=== PATIENT | male | born 1985 | race Two or more races ===

== ENCOUNTER 2020-01-29 15:40 | Emergency (ER) | payer OTHER ==
[2020-01-29 15:45] VITALS: BP 123/76; PULSE 74; RESP 20; TEMP 98.9
[2020-01-29] MEDS ORDERED: CLINDAMYCIN 150 MG CAP PO STA (15:55)
--- NOTE | 2020-01-29 15:56 | ED ---
ENT HPI - General Chief complaint: Dental/Oral Stated complaint: Mouth pain Time Seen by Provider: 01/29/20 15:46 Source: patient Mode of arrival: ambulatory Limitations: no limitations - History of Present Illness Initial comments: Patient is a 34-year-old male presenting to emergency Department chief complaint dental pain. Patient reports symptoms of an ongoing for the past few days. Patient reports she has not seen a dentist in quite a long time. States most of the pain is located in the left lower jaw with mild swelling region. States the swelling has improved today. Denies any night sweats or chills. Stays able to fully open his mouth without any difficulties. Denies taking medication to alleviate his symptoms. He is not diabetic. - Related Data Previous Rx's Medication Instructions Recorded ARIPiprazole [Abilify] 5 mg PO DAILY 30 Days tab 12/07/19 Acetaminophen Tab [Tylenol] 650 mg PO Q4HR PRN tab 12/07/19 Nicotine 14Mg/24Hr Patch [Habitrol] 1 patch TRANSDERM DAILY 14 Days 12/07/19 patch Clindamycin [Cleocin] 150 mg PO Q6H #40 capsule 01/29/20 Allergies Allergy/AdvReac Type Severity Reaction Status Date / Time Penicillins Allergy Nausea & Verified 01/29/20 15:44 Vomiting Review of Systems ROS Statement: Those systems with pertinent positive or pertinent negative responses have been documented in the HPI. ROS Other: All systems not noted in ROS Statement are negative. Past Medical History Additional Past Medical History / Comment(s): ODD, borderline personality History of Any Multi-Drug Resistant Organisms: None Reported Past Surgical History: No Surgical Hx Reported Past Psychological History: ADD/ADHD Smoking Status: Current every day smoker Past Alcohol Use History: Occasional Past Drug Use History: Cocaine, Marijuana, Methamphetamine - Past Family History Father Family Medical History: No Reported History General Exam Limitations: no limitations General appearance: alert, in no apparent distress Head exam: Present: atraumatic, normocephalic, normal inspection Eye exam: Present: normal appearance, PERRL, EOMI Pupils: Present: normal accommodation ENT exam: Present: normal exam, TM's normal bilaterally, normal external ear exam, other (No signs of Dusty's angina.). Absent: normal oropharynx (Poor dentition. Significant tooth decay and tooth #19. Some erythema along the gumline. No periapical abscess.) Neck exam: Present: normal inspection, full ROM. Absent: tenderness Respiratory exam: Present: normal lung sounds bilaterally. Absent: respiratory distress, wheezes Cardiovascular Exam: Present: regular rate, normal rhythm, normal heart sounds Extremities exam: Present: normal inspection, full ROM Back exam: Present: normal inspection, full ROM Neurological exam: Present: alert, oriented X3 Psychiatric exam: Present: normal affect, normal mood Skin exam: Present: warm, dry, intact, normal color Course Vital Signs 01/29/20 15:42 Temperature 98.9 F Pulse Rate 74 Respiratory 20 Rate Blood Pressure 123/76 O2 Sat by Pulse 97 Oximetry Medical Decision Making - Medical Decision Making Patient is a 34-year-old male presenting to emergency Department chief complaint abdominal pain. Exam patient has significant decay in tooth #19 with some inflammation around the gumline. No signs of periapical abscess. He does have history of poor dentition. Has not seen a dentist in quite a long time. He gave the patient a prescription of clindamycin and started on clindamycin in the emergency department. Patient also given information regarding frequent dental clinics. Return parameters were thoroughly discussed the patient was understanding and agreeable. Case discussed physician. Disposition Clinical Impression: Dental infection, Toothache Disposition: HOME SELF-CARE Condition: Poor Instructions (If sedation given, give patient instructions): Toothache (ED) Additional Instructions: Take prescribed medication as directed. Alternate between Tylenol and Motrin for pain control. Return to emergency department if symptoms worsen. Prescriptions: Clindamycin [Cleocin] 150 mg PO Q6H #40 capsule Is patient prescribed a controlled substance at d/c from ED?: No Referrals: None,Stated [Primary Care Provider] - 1-2 days Time of Disposition: 15:56
== END 2020-01-29 16:07 | disposition home or self-care (01) ==
LOC: MERGE 15:40 → EC 15:40
DX: K04.7 Periapical abscess without sinus (principal); K08.89 Other specified disorders of teeth and supporting structures; F17.200 Nicotine dependence, unspecified, uncomplicated; Z88.0 Allergy status to penicillin
CPT/HCPCS: 99282

== ENCOUNTER 2020-02-28 08:34 | Emergency (ER) | payer OTHER ==
[2020-02-28 08:40] VITALS: TEMP 98
--- NOTE | 2020-02-28 09:01 | ED ---
General Adult HPI - General Chief complaint: Chest Pain Stated complaint: dizziness/chest pain Time Seen by Provider: 02/28/20 08:35 Source: patient, RN notes reviewed, old records reviewed Mode of arrival: ambulatory Limitations: no limitations - History of Present Illness Initial comments: This is a 34-year-old male who presents emergency Department complaining of feeling lightheaded while at work. Patient states he did not eat breakfast today. Patient states he was working he felt a little lightheaded and then he had a weird feeling in his chest that lasted about 10 seconds. Patient states it felt like his heart wasn't pumping strong enough. But only lasted for 10 seconds. Patient denies any difficulty breathing shortest breath per patient denies any recent fever chills or cough per patient denies any headache patient denies being lightheaded currently. Patient denies any chest pain currently patient denies any difficulty breathing currently. Patient denies any symptoms at this time. - Related Data Previous Rx's Medication Instructions Recorded ARIPiprazole [Abilify] 5 mg PO DAILY 30 Days tab 12/07/19 Acetaminophen Tab [Tylenol] 650 mg PO Q4HR PRN tab 12/07/19 Nicotine 14Mg/24Hr Patch [Habitrol] 1 patch TRANSDERM DAILY 14 Days 12/07/19 patch Clindamycin [Cleocin] 150 mg PO Q6H #40 capsule 01/29/20 Allergies Allergy/AdvReac Type Severity Reaction Status Date / Time Penicillins Allergy Nausea & Verified 02/28/20 08:36 Vomiting Review of Systems ROS Statement: Those systems with pertinent positive or pertinent negative responses have been documented in the HPI. ROS Other: All systems not noted in ROS Statement are negative. 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 History of Any Multi-Drug Resistant Organisms: None Reported Past Surgical History: No Surgical Hx Reported Additional Past Surgical History / Comment(s): testicular surgery Past Psychological History: ADD/ADHD, Anxiety Smoking Status: Current every day smoker Past Alcohol Use History: Occasional Past Drug Use History: Marijuana - Past Family History Father Family Medical History: No Reported History General Exam - General Exam Comments Initial Comments: GENERAL: Patient is well-developed and well-nourished. Patient is nontoxic and well- hydrated and is in no acute distress. ENT: Neck is soft and supple. No significant lymphadenopathy is noted. Oropharynx is clear. Moist mucous membranes. Neck has full range of motion without eliciting any pain. EYES: The sclera were anicteric and conjunctiva were pink and moist. Extraocular movements were intact and pupils were equal round and reactive to light. Eyelids were unremarkable. PULMONARY: Unlabored respirations. Good breath sounds bilaterally. No audible rales rhonchi or wheezing was noted. CARDIOVASCULAR: There is a regular rate and rhythm without any murmurs gallops or rubs. ABDOMEN: Soft and nontender with normal bowel sounds. No palpable organomegaly was noted. There is no palpable pulsatile mass. SKIN: Skin is clear with no lesions or rashes and otherwise unremarkable. NEUROLOGIC: Patient is alert and oriented x3. Cranial nerves II through XII are grossly intact. Motor and sensory are also intact. Normal speech, volume and content. Symmetrical smile. MUSCULOSKELETAL: Normal extremities with adequate strength and full range of motion. No lower extremity swelling or edema. No calf tenderness. LYMPHATICS: No significant lymphadenopathy is noted PSYCHIATRIC: Normal psychiatric evaluation. Limitations: no limitations Course Vital Signs 02/28/20 02/28/20 02/28/20 08:36 08:53 09:00 Temperature 98 F Pulse Rate 75 68 64 Respiratory 18 9 L 18 Rate Blood Pressure 135/80 126/65 O2 Sat by Pulse 98 98 Oximetry 02/28/20 02/28/20 02/28/20 09:20 09:40 10:00 Temperature Pulse Rate 60 55 L 56 L Respiratory 15 17 18 Rate Blood Pressure 109/69 116/76 116/76 O2 Sat by Pulse 98 99 98 Oximetry 02/28/20 10:30 Temperature Pulse Rate 57 L Respiratory 17 Rate Blood Pressure 118/68 O2 Sat by Pulse 100 Oximetry Medical Decision Making - Medical Decision Making EKG shows normal sinus rhythm at 60 bpm AR interval 238 QRS is under QT interval 376 QTC is 399. Patient's EKG shows no ST segment elevation or depression. Chest x-ray shows no acute abnormality. Back into reevaluate the patient he stated he has been a symptomatically since he arrived. - Lab Data Result diagrams: 02/28/20 08:58 02/28/20 08:58 Lab Results 02/28/20 02/28/20 02/28/20 Range/Units 08:58 08:58 08:58 WBC 10.3 (3.8-10.6) k/uL RBC 5.24 (4.30-5.90) m/uL Hgb 16.1 (13.0-17.5) gm/dL Hct 49.4 (39.0-53.0) % MCV 94.3 (80.0-100.0) fL MCH 30.8 (25.0-35.0) pg MCHC 32.7 (31.0-37.0) g/dL RDW 12.9 (11.5-15.5) % Plt Count 106 L (150-450) k/uL Neutrophils % 73 % Lymphocytes % 19 % Monocytes % 4 % Eosinophils % 2 % Basophils % 1 % Neutrophils # 7.5 (1.3-7.7) k/uL Lymphocytes # 2.0 (1.0-4.8) k/uL Monocytes # 0.4 (0-1.0) k/uL Eosinophils # 0.2 (0-0.7) k/uL Basophils # 0.1 (0-0.2) k/uL Manual Slide Review Performed Large Platelets Present PT 10.3 (9.0-12.0) sec INR 1.0 (<1.2) APTT 25.3 (22.0-30.0) sec Sodium 139 (137-145) mmol/L Potassium 4.3 (3.5-5.1) mmol/L Chloride 106 (98-107) mmol/L Carbon Dioxide 24 (22-30) mmol/L Anion Gap 9 mmol/L BUN 14 (9-20) mg/dL Creatinine 0.94 (0.66-1.25) mg/dL Est GFR (CKD-EPI)AfAm >90 (>60 ml/min/1.73 sqM) Est GFR (CKD-EPI)NonAf >90 (>60 ml/min/1.73 sqM) Glucose 92 (74-99) mg/dL Calcium 9.4 (8.4-10.2) mg/dL Magnesium 1.9 (1.6-2.3) mg/dL Total Bilirubin 0.9 (0.2-1.3) mg/dL AST 30 (17-59) U/L ALT 16 (4-49) U/L Alkaline Phosphatase 51 (38-126) U/L Troponin I (0.000-0.034) ng/mL Total Protein 7.2 (6.3-8.2) g/dL Albumin 4.6 (3.5-5.0) g/dL 02/28/20 Range/Units 08:58 WBC (3.8-10.6) k/uL RBC (4.30-5.90) m/uL Hgb (13.0-17.5) gm/dL Hct (39.0-53.0) % MCV (80.0-100.0) fL MCH (25.0-35.0) pg MCHC (31.0-37.0) g/dL RDW (11.5-15.5) % Plt Count (150-450) k/uL Neutrophils % % Lymphocytes % % Monocytes % % Eosinophils % % Basophils % % Neutrophils # (1.3-7.7) k/uL Lymphocytes # (1.0-4.8) k/uL Monocytes # (0-1.0) k/uL Eosinophils # (0-0.7) k/uL Basophils # (0-0.2) k/uL Manual Slide Review Large Platelets PT (9.0-12.0) sec INR (<1.2) APTT (22.0-30.0) sec Sodium (137-145) mmol/L Potassium (3.5-5.1) mmol/L Chloride (98-107) mmol/L Carbon Dioxide (22-30) mmol/L Anion Gap mmol/L BUN (9-20) mg/dL Creatinine (0.66-1.25) mg/dL Est GFR (CKD-EPI)AfAm (>60 ml/min/1.73 sqM) Est GFR (CKD-EPI)NonAf (>60 ml/min/1.73 sqM) Glucose (74-99) mg/dL Calcium (8.4-10.2) mg/dL Magnesium (1.6-2.3) mg/dL Total Bilirubin (0.2-1.3) mg/dL AST (17-59) U/L ALT (4-49) U/L Alkaline Phosphatase (38-126) U/L Troponin I <0.012 (0.000-0.034) ng/mL Total Protein (6.3-8.2) g/dL Albumin (3.5-5.0) g/dL Disposition Clinical Impression: Lightheadedness Disposition: HOME SELF-CARE Instructions (If sedation given, give patient instructions): Lightheadedness (ED) Is patient prescribed a controlled substance at d/c from ED?: No Referrals: None,Stated [Primary Care Provider] - 1-2 days Time of Disposition: 10:39
--- NOTE | 2020-02-28 09:14 | XR ---
EXAMINATION TYPE: XR chest 2V DATE OF EXAM: 02/28/2020 CLINICAL HISTORY: Chest pain. Dizziness. TECHNIQUE: Frontal and lateral views of the chest are obtained. COMPARISON: None FINDINGS: The cardiomediastinal silhouette is within normal limits for size. Pulmonary vasculature i s normal. There is no focal air space opacity, pleural effusion, or pneumothorax seen. The osseous st ructures are intact. IMPRESSION: No acute cardiopulmonary process.
[2020-02-28 09:42] LABS: Basophils # (A) 0.1 k/uL (0-0.2); Basophils % (A) 1 %; Eosinophils # (A) 0.2 k/uL (0-0.7); Eosinophils % (A) 2 %; HCT 49.4 % (39.0-53.0); HGB 16.1 gm/dL (13.0-17.5); Lymphocytes % (A) 19 %; MCH 30.8 pg (25.0-35.0); MCHC 32.7 g/dL (31.0-37.0); MCV 94.3 fL (80.0-100.0); Mean Platelet Volume 11.7; Monocytes # (A) 0.4 k/uL (0-1.0); Monocytes % (A) 4 %; Neutrophils # (A) 7.5 k/uL (1.3-7.7); Neutrophils % (A) 73 %; Platelet Count 106 k/uL (150-450); RBC 5.24 m/uL (4.30-5.90); RDW 12.9 % (11.5-15.5); WBC 10.3 k/uL (3.8-10.6)
[2020-02-28 09:47] VITALS: RESP 17
[2020-02-28 09:55] LABS: Partial Thromboplastin Time 25.3 sec (22.0-30.0); Prothrombin Time 10.3 sec (9.0-12.0)
[2020-02-28 09:56] LABS: ALT 16 U/L (4-49); AST 30 U/L (17-59); African American GFR (CKD) >90 (>60 ml/min/1.73 sqM); Albumin 4.6 g/dL (3.5-5.0); Alkaline Phosphatase 51 U/L (38-126); Anion Gap 9 mmol/L; Blood Urea Nitrogen 14 mg/dL (9-20); Calcium 9.4 mg/dL (8.4-10.2); Carbon Dioxide 24 mmol/L (22-30); Chloride 106 mmol/L (98-107); Glucose 92 mg/dL (74-99); Magnesium 1.9 mg/dL (1.6-2.3); Non-African American GFR(CKD) >90 (>60 ml/min/1.73 sqM); Potassium 4.3 mmol/L (3.5-5.1); Sodium 139 mmol/L (137-145); Total Bilirubin 0.9 mg/dL (0.2-1.3); Total Protein 7.2 g/dL (6.3-8.2)
[2020-02-28 10:04] LABS: Large Platelets Present
[2020-02-28 10:32] VITALS: BP 118/68; PULSE 57
== END 2020-02-28 10:54 | disposition home or self-care (01) ==
LOC: EC 08:34
DX: R42 Dizziness and giddiness (principal); F17.200 Nicotine dependence, unspecified, uncomplicated; Z88.0 Allergy status to penicillin
CPT/HCPCS: 36415; 71046; 80053; 83735; 84484; 85025; 85610; 85730; 93005; 99285

== ENCOUNTER 2020-12-25 23:46 | Emergency (ER) | payer OTHER ==
[2020-12-25 23:54] VITALS: TEMP 98.1
[2020-12-26] MEDS ORDERED: WATER FOR IRRIG, STERILE 1,000 ML BTL IRRIGATION ONE (00:04)
[2020-12-26] MEDS ORDERED: DIPH,PERTUS(ACELL)TETVAC-LF 0.5 ML VIAL IM ONE (00:04)
[2020-12-26] MEDS ORDERED: BACITRACIN OINT 1 EACH PACKET TOPICAL ONE (00:04)
[2020-12-26] MEDS ORDERED: LIDOCAINE 1% INJ 10MG/ML (20 ML MDV) SQ ONE (00:07)
--- NOTE | 2020-12-26 00:09 | ED ---
Psych HPI - General Chief Complaint: Psychiatric Symptoms Stated Complaint: Lacerations Time Seen by Provider: 12/26/20 00:00 Source: patient Mode of arrival: ambulatory - History of Present Illness Initial Comments: 35 year-old male patient who is currently incarcerated presents with officer for evaluation of lacerations over his bilateral arms, forehead, and abdomen. Patient admits that these wounds are self inflicted. States he generally takes abilify but has not been on it. States that he has been hearing voices. States cutting himself makes the voices stop. Denies suicidal ideation states he does not want to . Officer is present states that they are here to have his wounds stitched, they are not requesting psychiatric evaluation at this time, and will be able to have him frequently checked and monitored at the alf facility. She is unsure when his last tetanus vaccine was given. Denies any significant pain to the areas. - Related Data Previous Rx's Medication Instructions Recorded ARIPiprazole [Abilify] 5 mg PO DAILY 30 Days tab 12/07/19 Acetaminophen Tab [Tylenol] 650 mg PO Q4HR PRN tab 12/07/19 Nicotine 14Mg/24Hr Patch [Habitrol] 1 patch TRANSDERM DAILY 14 Days 12/07/19 patch Clindamycin [Cleocin] 150 mg PO Q6H #40 capsule 01/29/20 Allergies Allergy/AdvReac Type Severity Reaction Status Date / Time Penicillins Allergy Nausea & Verified 12/25/20 23:50 Vomiting Review of Systems ROS Statement: Those systems with pertinent positive or pertinent negative responses have been documented in the HPI. ROS Other: All systems not noted in ROS Statement are negative. 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 History of Any Multi-Drug Resistant Organisms: None Reported Past Surgical History: No Surgical Hx Reported Additional Past Surgical History / Comment(s): testicular surgery Past Psychological History: ADD/ADHD, Anxiety, Depression Smoking Status: Current every day smoker Past Alcohol Use History: Occasional Past Drug Use History: Marijuana, Methamphetamine - Past Family History Father Family Medical History: No Reported History General Exam Limitations: no limitations General appearance: alert, in no apparent distress, other (This is a well-developed, well-nourished adult male patient in no acute distress. Vital signs upon presentation temperature 98.1F, pulse 108, respirations 20, blood pressure 127/85, pulse ox 97% on room air.) Head exam: Present: other (Superficial lacerations noted to the forehead, no active bleeding.) Eye exam: Present: normal appearance, PERRL, EOMI. Absent: scleral icterus, conjunctival injection, periorbital swelling ENT exam: Present: normal exam, normal oropharynx, mucous membranes moist Respiratory exam: Present: normal lung sounds bilaterally. Absent: respiratory distress, wheezes, rales, rhonchi, stridor Cardiovascular Exam: Present: regular rate, normal rhythm, normal heart sounds. Absent: systolic murmur, diastolic murmur, rubs, gallop, clicks GI/Abdominal exam: Present: soft, normal bowel sounds, other (3 small superficial lacerations noted to the lower abdomen. No active bleeding. ). Absent: distended, tenderness, guarding, rebound, rigid Extremities exam: Present: full ROM, normal capillary refill, other (There are multiple superficial lacerations noted over the right upper and right lower arm. Left arm 3 gaping lacerations to the left forearm, one gaping laceration to his left upper arm posteriorly. No active bleeding. Skin is pink, warm, dry. Cap refill less than 3 seconds. Radial pulse 2+). Absent: normal inspection, tenderness, pedal edema, joint swelling, calf tenderness Neurological exam: Present: alert, oriented X3, CN II-XII intact Psychiatric exam: Present: normal affect, normal mood Skin exam: Present: warm, dry, intact, normal color. Absent: rash Course Vital Signs 12/25/20 12/26/20 23:50 01:00 Temperature 98.1 F Pulse Rate 108 H 98 Respiratory 20 16 Rate Blood Pressure 127/85 152/79 O2 Sat by Pulse 97 98 Oximetry Procedures - Laceration Laceration #1 Consent Obtained: verbal consent Indication: laceration Site: upper extremity (left upper) Size (cm): 3 Description: linear Depth: simple, single layer Anesthetic Used: lidocaine 1% Anesthesia Technique: local infiltration Amount (mls): 3 Pre-repair: irrigated extensively Type of Sutures: nylon Size of Sutures: 5-0 Number of Sutures: 4 Technique: simple, interrupted Patient Tolerated Procedure: well, no complications Laceration #2 Consent Obtained: verbal consent Indication: laceration Site: upper extremity (left forearm proximal) Size (cm): 3 Description: linear Depth: simple, single layer Anesthetic Used: lidocaine 1% Anesthesia Technique: local infiltration Amount (mls): 3 Pre-repair: irrigated extensively Type of Sutures: nylon Size of Sutures: 5-0 Number of Sutures: 4 Technique: simple, interrupted Patient Tolerated Procedure: well, no complications Laceration #3 Consent Obtained: verbal consent Indication: laceration Site: upper extremity (left forearm middle) Size (cm): 4 Description: linear Depth: simple, single layer Anesthetic Used: lidocaine 1% Anesthesia Technique: local infiltration Amount (mls): 2 Pre-repair: irrigated extensively Type of Sutures: nylon Size of Sutures: 5-0 Number of Sutures: 5 Technique: simple, interrupted Patient Tolerated Procedure: well, no complications Laceration #4 Consent Obtained: verbal consent Indication: laceration Site: upper extremity (left forearm distal) Size (cm): 3 Description: linear Depth: simple, single layer Anesthetic Used: lidocaine 1% Anesthesia Technique: local infiltration Amount (mls): 3 Pre-repair: irrigated extensively Type of Sutures: nylon Size of Sutures: 5-0 Number of Sutures: 2 Technique: simple, interrupted Patient Tolerated Procedure: well, no complications Medical Decision Making - Medical Decision Making 35 old male patient presented to the emergency department today for evaluation of multiple lacerations self-inflicted using a razor. Patient is incarcerated at this time. Physical examination did reveal multiple very tiny superficial lacerations over the forehead and bilateral cheeks. Multiple tiny superficial lacerations noted over the left upper chest in the lower abdomen. Multiple superficial lacerations noted to the right upper arm and right forearm. Multiple lacerations noted to the left forearm and one laceration noted to the left upper arm. Lacerations to the left upper arm and forearm were repaired as documented. Other wounds were cleansed and bacitracin applied. Did give wound care and signs or symptoms of infection. He is instructed to have the stitches removed in 7 days. Officer is present and declined psychiatric evaluation states that he will be on suicide watch at his facility and will be evaluated by [facility]. Patient and officer agree to this plan. He is cleared medically and discharged back to alf. My attending Dr. Duran. Disposition Clinical Impression: Lacerations of multiple sites of left arm, Lacerations of multiple sites of right arm, Laceration of abdomen, Face lacerations Disposition: HOME SELF-CARE Condition: Good Instructions (If sedation given, give patient instructions): Care For Your Stitches (ED), Laceration (ED) Additional Instructions: Keep wounds clean and dry. Cleanse twice daily with warm and antibacterial soap. Have stitches removed in 7 days. Follow up with the primary care physician or medical professional for further evaluations as possible. Return for any new, worsening, or concerning symptoms. Is patient prescribed a controlled substance at d/c from ED?: No Referrals: None,Stated [Primary Care Provider] - 1-2 days Time of Disposition: 00:53
[2020-12-26 01:01] VITALS: PULSE 98
[2020-12-26 01:02] VITALS: BP 152/79; RESP 16
== END 2020-12-26 01:02 | disposition home or self-care (01) ==
LOC: EC 23:46
DX: S51.812A Laceration without foreign body of left forearm, initial encounter (principal); S01.81XA Laceration without foreign body of other part of head, initial encounter; S01.412A Laceration without foreign body of left cheek and temporomandibular area, initial encounter; S01.411A Laceration without foreign body of right cheek and temporomandibular area, initial encounter; S31.114A Laceration without foreign body of abdominal wall, left lower quadrant without penetration into peritoneal cavity, initial encounter; S51.811A Laceration without foreign body of right forearm, initial encounter; F17.200 Nicotine dependence, unspecified, uncomplicated; Z23 Encounter for immunization; Z88.0 Allergy status to penicillin; X78.8XXA Intentional self-harm by other sharp object, initial encounter; Y92.149 Unspecified place in prison as the place of occurrence of the external cause
CPT/HCPCS: 90715; 99284; 12045; 90471; J2001

== ENCOUNTER 2023-02-08 16:51 | Emergency (ER) | payer OTHER ==
--- NOTE | 2023-02-08 17:43 | ED ---
General Adult HPI - General Source: RN notes reviewed <Kimberly Guardado - Last Filed: 02/08/23 17:41> - General Source: RN notes reviewed, old records reviewed Mode of arrival: EMS Limitations: no limitations - History of Present Illness -: days(s) (1) Location: chest Radiation: non-radiation, proximal Quality: stabbing Consistency: constant Improves with: none Worsens with: none Associated Symptoms: cough, shortness of breath Treatments Prior to Arrival: none <Jairo Duran - Last Filed: 02/08/23 19:48> - General Stated complaint: Cough,sob,vomiting Time Seen by Provider: 02/08/23 17:41 - History of Present Illness Initial comments: 37-year-old male with no significant past medical history presents emergency Department with chief complaint of cough. Patient reports recent sick contacts. Patient reports fever. (Kimberly Guardado) This 29-year-old male DF for evaluation of cough cough or congestion. Patient does have history of necrotizing pneumonitis concern for recurrence. Patient believes she has had a fever but has not been above 100, patient is also cough or congestion of travel show sick contacts no other complaints (Jairo Duran) - Related Data Previous Rx's Medication Instructions Recorded ARIPiprazole [Abilify] 5 mg PO DAILY 30 Days tab 12/07/19 Acetaminophen Tab [Tylenol] 650 mg PO Q4HR PRN tab 12/07/19 Nicotine 14Mg/24Hr Patch [Habitrol] 1 patch TRANSDERM DAILY 14 Days 12/07/19 patch Clindamycin [Cleocin] 150 mg PO Q6H #40 capsule 01/29/20 Allergies Allergy/AdvReac Type Severity Reaction Status Date / Time Penicillins Allergy Nausea & Verified 02/08/23 17:44 Vomiting Review of Systems ROS Other: All systems not noted in ROS Statement are negative. <Kimberly Guardado - Last Filed: 02/08/23 17:41> ROS Other: All systems not noted in ROS Statement are negative. <Jairo Duran - Last Filed: 02/08/23 19:48> ROS Statement: Those systems with pertinent positive or pertinent negative responses have been documented in the HPI. 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 History of Any Multi-Drug Resistant Organisms: None Reported Past Surgical History: No Surgical Hx Reported Additional Past Surgical History / Comment(s): testicular surgery Past Psychological History: ADD/ADHD, Anxiety, Depression Smoking Status: Current every day smoker Past Alcohol Use History: Occasional Past Drug Use History: Marijuana, Methamphetamine - Past Family History Father Family Medical History: No Reported History <Kimberly Guardado - Last Filed: 02/08/23 17:41> General Exam <Kimberly Guardado - Last Filed: 02/08/23 17:41> General appearance: alert, in no apparent distress Head exam: Present: atraumatic, normocephalic, normal inspection Eye exam: Present: normal appearance, PERRL, EOMI. Absent: scleral icterus, conjunctival injection, periorbital swelling ENT exam: Present: normal exam, mucous membranes moist Neck exam: Present: normal inspection. Absent: tenderness, meningismus, lymphadenopathy Respiratory exam: Present: normal lung sounds bilaterally, wheezes. Absent: respiratory distress, rales, rhonchi, stridor Cardiovascular Exam: Present: regular rate, normal rhythm, normal heart sounds. Absent: systolic murmur, diastolic murmur, rubs, gallop, clicks GI/Abdominal exam: Present: soft, normal bowel sounds. Absent: distended, tenderness, guarding, rebound, rigid Extremities exam: Present: normal inspection, full ROM, normal capillary refill. Absent: tenderness, pedal edema, joint swelling, calf tenderness Back exam: Present: normal inspection Neurological exam: Present: alert, oriented X3, CN II-XII intact Psychiatric exam: Present: normal affect, normal mood Skin exam: Present: warm, dry, intact, normal color. Absent: rash <Jairo Duran - Last Filed: 02/08/23 19:48> - General Exam Comments Initial Comments: Visual Physical Exam Vital signs reviewed General: Well-appearing, nontoxic, no acute distress. Head: Normocephalic, atraumatic Eyes: PERRLA, EOMI ENT: Airway patent Chest: Nonlabored breathing Skin: No visual rash, normal skin tone Neuro: Alert and oriented 3 Musculoskeletal: No gross abnormalities I performed the quick note portion of this exam, verbal signature Kimberly Guardado PA-C (Kimberly Guardado) Course <Jairo Duran - Last Filed: 02/08/23 19:48> Vital Signs 02/08/23 02/08/23 17:41 18:37 Temperature 99.7 F H Pulse Rate 64 84 Respiratory 20 118 H Rate Blood Pressure 103/63 110/68 O2 Sat by Pulse 99 98 Oximetry - Reevaluation(s) Reevaluation #1: 02/08/23 19:45 Medical records reviewed (Jairo Duran) Reevaluation #2: 02/08/23 19:45 Patient's symptoms improving (Jairo Duran) Reevaluation #3: 02/08/23 19:45 Patient informed results and questions answered (Jairo Duran) Reevaluation #4: 02/08/23 19:45 Was pt. sent in by a medical professional or institution (CUBA Sánchez, APPLICATIONS DEVELOPMENT ANALYST, urgent care, hospital, or [place] [facility] facility...) When possible be specific @ -no Did you speak to anyone other than the patient for history (EMS, parent, family, police, friend...)? What history was obtained from this source @ -no Did you review nursing and triage notes (agree or disagree)? Why? @ -agree Are old charts reviewed (outside hosp., previous admission, EMS record, old EKG, old radiological studies, urgent care reports/EKG's, [place] [facility] records)? Report findings @ -yes Differential Diagnosis (chest pain, altered mental status, abdominal pain women, abdominal pain men, vaginal bleeding, weakness, fever, dyspnea, syncope, headache, dizziness, GI bleed, back pain, seizure, CVA, palpatations, mental health, musculoskeletal)? @ -prior EKG interpreted by me (3pts min.). @ -yes X-rays interpreted by me (1pt min.). @ -yes CT interpreted by me (1pt min.). @ -no U/S interpreted by me (1pt. min.). @ -no What testing was considered but not performed or refused? (CT, X-rays, U/S, l abs)? Why? @ -none What meds were considered but not given or refused? Why? @ -none Did you discuss the management of the patient with other professionals (professionals i.e. Dr., PA, APPLICATIONS DEVELOPMENT ANALYST, lab, RT, psych nurse, vp digital marketing social media and crm, artistic director, teacher, public records officer, dependency case manager)? Give summary @ -no Was smoking cessation discussed for >3mins.? @ -no Was critical care preformed (if so, how long)? @ -no Were there social determinants of health that impacted care today? How? (Homelessness, low income, unemployed, alcoholism, drug addiction, transportation, low edu. Level, literacy, decrease access to med. care, correction, rehab)? @ -none Was there de-escalation of care discussed even if they declined (Discuss DNR or withdrawal of care, Hospice)? DNR status @ -no What co-morbidities impacted this encounter? (DM, HTN, Smoking, COPD, CAD, Cancer, CVA, ARF, Chemo, Hep., AIDS, mental health diagnosis, sleep apnea, morbid obesity)? @ -none Was patient admitted / discharged? Hospital course, mention meds given and route, prescriptions, significant lab abnormalities, going to OR and other pertinent info. @ - Undiagnosed new problem with uncertain prognosis? @ -no Drug Therapy requiring intensive monitoring for toxicity (Heparin, Nitro, Insulin, Cardizem)? @ -no Were any procedures done? @ -no Diagnosis/symptom? @ - Acute, or Chronic, or Acute on Chronic? @ -Acute Uncomplicated (without systemic symptoms) or Complicated (systemic symptoms)? @ -Complicated Side effects of treatment? @ -no Exacerbation, Progression, or Severe Exacerbation? @ -exacerbation Poses a threat to life or bodily function? How? (Chest pain, [place], [place], pneumonia, PE, COPD, DKA, ARF, appy, cholecystitis, CVA, Diverticulitis, Homicidal, Suicidal, threat to staff... and all critical care pts) @ -yes (Jairo Duran) Reevaluation #5: 02/08/23 19:45 Differential Dyspnea: Coronary syndrome, arrhythmia, tamponade, asthma, COPD, pulmonary embolism, pneumonia, pneumothorax, pulmonary effusion, anaphylaxis, diabetic ketoacidosis, flailed chest, pulmonary contusion, diaphragmatic rupture, anemia, neuromuscular, this is not meant to be an all-inclusive list. (Jairo Duran) EKG Findings - EKG Comments: EKG Findings:: EKG sinus 67 WV 101 QRS 97 QTC 369 - EKG Results: EKG: interpreted by ERMD <Jairo Duran - Last Filed: 02/08/23 19:48> Medical Decision Making - EKG Data -: EKG Interpreted by Me - Radiology Data Radiology results: report reviewed (Chest x-rays negative for acute disease), image reviewed <Jairo Duran - Last Filed: 02/08/23 19:48> - Medical Decision Making 37 male will treat throat patient up frustrated infection place on antibiotics with medical history of significant and severe pneumonia. Patient return if fever worsens or symptoms worsen shortness of breath develops (Jairo Patel) - Lab Data Lab Results 02/08/23 02/08/23 Range/Units 17:45 17:50 Influenza Type A (PCR) Not Detected (Not Detectd) Influenza Type B (PCR) Not Detected (Not Detectd) RSV (PCR) Not Detected (Not Detectd) SARS-CoV-2 (PCR) Not Detected (Not Detectd) Group A Strep (PCR) NOT DETECTED (Not Detectd) Disposition <Kimberly Guardado - Last Filed: 02/08/23 17:41> Is patient prescribed a controlled substance at d/c from ED?: No Time of Disposition: 19:50 <Jairo Duran - Last Filed: 02/08/23 19:48> Clinical Impression: Acute upper respiratory infection, Bronchitis Disposition: HOME SELF-CARE Condition: Good Instructions (If sedation given, give patient instructions): Upper Respiratory Infection (ED) Referrals: None,Stated [Primary Care Provider] - 1-2 days
[2023-02-08 17:45] VITALS: TEMP 99.7
[2023-02-08 18:38] VITALS: BP 110/68; PULSE 84; RESP 118
[2023-02-08] MEDS ORDERED: IBUPROFEN 800 MG TAB PO STA (19:03)
[2023-02-08] MEDS ORDERED: ACETAMINOPHEN TAB 500 MG TAB PO STA (19:03)
--- NOTE | 2023-02-08 19:24 | XR ---
EXAMINATION TYPE: XR chest 2V DATE OF EXAM: 02/08/2023 7:08 PM COMPARISON: Chest radiographs from 02/28/2020 TECHNIQUE: XR chest 2V Frontal and lateral views of the chest. CLINICAL INDICATION:Male, 37 years old with history of cough; FINDINGS: Lungs/Pleura: There is no evidence of pleural effusion, focal consolidation, or pneumothorax. Pulmonary vascularity: Unremarkable. Heart/mediastinum: Cardiomediastinal silhouette is unremarkable. Musculoskeletal: No acute osseous pathology. IMPRESSION: No acute cardiopulmonary disease/process.
[2023-02-08] MEDS ORDERED: AZITHROMYCIN 500 MG TAB PO STA (19:48)
== END 2023-02-08 20:02 | disposition home or self-care (01) ==
LOC: EC 16:51
DX: J06.9 Acute upper respiratory infection, unspecified (principal); J40 Bronchitis, not specified as acute or chronic; F15.90 Other stimulant use, unspecified, uncomplicated; F12.90 Cannabis use, unspecified, uncomplicated; F17.200 Nicotine dependence, unspecified, uncomplicated; Z86.59 Personal history of other mental and behavioral disorders; Z88.0 Allergy status to penicillin; Z20.822 Contact with and (suspected) exposure to COVID-19
CPT/HCPCS: 71046; 87636; 87651; 93005; 99285